=== PATIENT | female | born 1955 | race Caucasian/White ===

== ENCOUNTER 2017-04-15 23:48 | Observation (INO) | payer BC, OTHER ==
[2017-04-15 23:54] VITALS: BMI 34.9
--- NOTE | 2017-04-16 01:41 | PDOC ---
History of Present Illness - General Chief Complaint: Psychiatric Stated Complaint: ALTERED MENTAL STATUS Time Seen by Provider: 04/16/17 00:01 History Source: Patient Exam Limitations: No Limitations - History of Present Illness Initial Comments: 61-year-old female with a history of hypertension presents to the emergency department complaining of suicidal thoughts. Patient states she is under an extreme amount of stress over the past month. Patient states her brother and her best friend's was recently diagnosed with esophageal cancer. Patient presents to the emergency department tonight with her daughter after several episodes of hallucinations as per her daughter. Patient's daughter states the patient has a safe in her room at home which contains a ring from the patient's mother whom years ago. The patient does not have the keys to the safe. Her daughter is the only one who has the vazquez. The patient is convinced that the stone to the ring is missing and has been replaced. The patient also states she's been extremely upset after opening up to credit card lines approximately 1 month ago without her family knowing. Patient states her daughter and are the ones who deals with the finances of the home. Patient states she owes approximately $4000 on the combined credit cards. Patient told the family approximately 1 month ago because she states she can't hold it anymore. Patient states her thoughts are constantly consistent with if she was no longer around. Patient states she believes she is no longer on this earth, a lot of the problems will be resolved. Patient denied having a suicidal plan and she denies homicidal tendencies Timing/Duration: intermittent Associated Symptoms: anxiety, other (suicidal though) Past History - Past Medical History Allergies/Adverse Reactions: Allergies tetracycline Allergy (Verified 04/15/17 23:54) Rash Home Medications: Ambulatory Orders Cyclobenzaprine HCl [Flexeril -] 10 mg PO HS 04/16/17 Diazepam [Valium] 5 mg PO ONCE 04/16/17 Felodipine [Felodipine ER] 10 mg PO DAILY 04/16/17 Lisinopril [Zestril] 35 mg PO DAILY 04/16/17 Metoprolol Tartrate 100 mg PO DAILY 04/16/17 - Social History Smoking Status: Current some day smoker Number of Cigarettes Per Day: 5 *Review of Systems - Review of Systems Able to Perform ROS?: Yes Comments:: 04/16/17 03:57 CONSTITUTIONAL: Absent: fever, chills, diaphoresis, generalized weakness, malaise, loss of appetite HEENT: Absent: rhinorrhea, nasal congestion, throat pain, throat swelling, difficulty swallowing, mouth swelling, ear pain, eye pain, visual Changes CARDIOVASCULAR: Absent: chest pain, loss of consciousness, palpitations, irregular heart rate, peripheral edema RESPIRATORY: Absent: cough, shortness of breath, dyspnea with exertion, orthopnea, wheezing, stridor, hemoptysis GASTROINTESTINAL: Absent: abdominal pain, abdominal distension, nausea, vomiting, diarrhea, constipation, melena, hematochezia GENITOURINARY: Absent: dysuria, frequency, urgency, hesitancy, hematuria, flank pain, genital pain MUSCULOSKELETAL: Absent: myalgia, arthralgia, joint swelling SKIN: Absent: rash, itching, pallor HEMATOLOGIC/IMMUNOLOGIC: Absent: easy bleeding, easy bruising, lymphadenopathy, frequent infections ENDOCRINE: Absent: unexplained weight gain, unexplained weight loss, heat intolerance, cold intolerance NEUROLOGIC: Absent: headache, focal weakness or paresthesias, dizziness, unsteady gait, seizure, mental status changes, bladder or bowel incontinence PSYCHIATRIC: +hallucinations, anxiety, depression Absent: depression, homicidal ideation *Physical Exam - Vital Signs Last Vital Signs Temp Pulse Resp BP Pulse Ox 98 F 85 18 145/73 100 04/15/17 23:51 04/15/17 23:51 04/15/17 23:51 04/15/17 23:51 04/15/17 23:51 - Physical Exam Comments: 04/16/17 03:58 GENERAL: Well developed, well nourished. Awake and alert. No acute distress. HEENT: Normocephalic, atraumatic. PERRLA, EOMI. No conjunctival pallor. Sclera are non- icteric. Moist mucous membranes. Oropharynx is clear. NECK: Supple. Full ROM. No JVD. Carotid pulses 2+ and symmetric, without bruits. No thyromegaly. No lymphadenopathy. CARDIOVASCULAR: Regular rate and rhythm. No murmurs, rubs, or gallops. Distal pulses are 2+ and symmetric. PULMONARY: No evidence of respiratory distress. Lungs clear to auscultation bilaterally. No wheezing, rales or rhonchi. ABDOMINAL: Soft. Non-tender. Non-distended. No rebound or guarding. No organomegaly. Normoactive bowel sounds. MUSCULOSKELETAL Normal range of motion at all joints. No bony deformities or tenderness. No CVA tenderness. EXTREMITIES: No cyanosis. No clubbing. No edema. No calf tenderness. SKIN: Warm and dry. Normal capillary refill. No rashes. No jaundice. NEUROLOGICAL: Alert, awake, appropriate. Cranial nerves 2-12 intact. No deficits to light touch and temperature in face, upper extremities and lower extremities. No motor deficits in the in face, upper extremities and lower extremities. Normoreflexic in the upper and lower extremities. Normal speech. Toes are down- going bilaterally. Gait is normal without ataxia. PSYCHIATRIC: Cooperative. Good eye contact. Appropriate mood and affect. Plan - Laboratory CBC & Chemistry Diagram: 04/16/17 02:53 04/16/17 02:53 *DC/Admit/Observation/Transfer Diagnosis at time of Disposition: Suicidal thoughts, Anxiety - Discharge Dispostion Admit: Yes - Referrals Referrals: Shaye Nicole [Primary Care Provider] - - Patient Instructions - Post Discharge Activity Progress Note - Progress Note Progress Note: 0032hrs: Called Dr. Hernandez/psychiatry/[phone] awaiting response 0115hrs: Called Dr. Hernandez/cady/[phone] awaiting response 0233hrs: Called Dr. Hernandez/cady/[phone] awaiting response 0345hrs: Called Dr. Hernandez/cady/[phone] awaiting response 0502hrs: Called Dr. Hernandez/cady/[phone] awaiting response 0629hrs: Called Dr. Hernandez/cady/[phone] awaiting response 0705hrs: Signed out to RAISA Chang, awaiting Dr. Hernandez call back and consult
[2017-04-16 03:09] LABS: MCH 31.1 pg (25.7-33.7); MCHC 33.8 g/dl (32.0-36.0); MEAN CELL VOLUME 92.3 fl (80-96); MEAN PLT VOLUME 8.4 fl (7.5-11.1); PLATELET COUNT 266 K/MM3 (134-434); RDW 13.4 % (11.6-15.6); WHITE BLOOD COUNT 15.4 K/mm3 (4.0-10.0)
[2017-04-16 03:28] LABS: TOTAL CELLS COUNTED 100
[2017-04-16 03:49] LABS: ALBUMIN 4.4 g/dl (3.4-5.0); ANION GAP 9 (8-16); BILIRUBIN,TOTAL 0.5 mg/dL (0.2-1.0); CO2 26 mmol/L (21-32); CREATININE 1.2 mg/dL (0.55-1.02); GLUCOSE,RANDOM 105 mg/dL (74-106); SGOT/AST 19 U/L (15-37); SGPT/ALT 30 U/L (12-78); TOT PROT 7.8 g/dl (6.4-8.2)
[2017-04-16 03:50] LABS: ALK PHOS 66 U/L (45-117)
[2017-04-16 07:39] LABS: URINE APPEARANCE SLCLOUDY; URINE BILIRUBIN NEGATIVE (NEGATIVE); URINE BLOOD 1+ (NEGATIVE); URINE COLOR LTYELLOW; URINE GLUCOSE (UA) NEGATIVE (NEGATIVE); URINE KETONE NEGATIVE (NEGATIVE); URINE NITRITE NEGATIVE (NEGATIVE); URINE PROTEIN NEGATIVE (NEGATIVE); URINE UROBILINOGEN NEGATIVE mg/dL (0.2-1.0)
[2017-04-16 07:42] LABS: URINE BACTERIA MANY /hpf (NONE SEEN); URINE MUCUS RARE; URINE RBC 12 /hpf (0-3); URINE WBC 21 /hpf (3-5); YEAST FEW
[2017-04-16 08:19] LABS: URINE MARIJUANA THC POSITIVE ng/ml (CUTOFF=50)
[2017-04-16 08:28] VITALS: BP 118/73; PULSE 78; TEMP 98.4
--- NOTE | 2017-04-16 09:04 | PDOC ---
*Physical Exam - Vital Signs Last Vital Signs Temp Pulse Resp BP Pulse Ox 98.4 F 78 18 118/73 100 04/16/17 08:26 04/16/17 08:26 04/16/17 08:26 04/16/17 08:26 04/16/17 08:26 ED Treatment Course - LABORATORY CBC & Chemistry Diagram: 04/16/17 02:53 04/16/17 02:53 - ADDITIONAL ORDERS Additional order review: Laboratory Results 04/16/17 04/16/17 02:53 02:53 Sodium 138 Potassium 4.0 Chloride 103 Carbon Dioxide 26 Anion Gap 9 BUN 15 Creatinine 1.2 H Creat Clearance w eGFR 45.67 Random Glucose 105 Calcium 10.0 Total Bilirubin 0.5 AST 19 ALT 30 Alkaline Phosphatase 66 Total Protein 7.8 Albumin 4.4 TSH 2.50 04/16/17 02:53 RBC 4.47 MCV 92.3 MCHC 33.8 RDW 13.4 MPV 8.4 Neutrophils % No Result Required. Lymphocytes % No Result Required. Medical Decision Making - Medical Decision Making 04/16/17 08:03 Patient received in sign out from TRIP Kelly . Patient complaining of increased anxiety and stated suicidal ideation without a specific plan. Patient denies psychiatric history. Patient currently with one-to-one. Call placed to Dr. Morton and states will consult on patient shortly. 04/16/17 13:00 Laboratory Tests 04/16/17 07:25 Barbiturate Screen Negative Phencyclidine Screen Negative Ur Amphetamines Screen Negative MDMA (Ecstasy) Screen Negative Benzodiazepines Screen Positive Cocaine Screen Negative U Marijuana (THC) Screen Positive Dr. Morton here for consultation and states patient may be discharged home to be given a prescription for Remeron 15 mg for 2 weeks. Pt contracted for safety and wants to go home. *DC/Admit/Observation/Transfer Diagnosis at time of Disposition: Suicidal thoughts, Anxiety - Discharge Dispostion Disposition: HOME Condition at time of disposition: Good - Referrals - Patient Instructions - Post Discharge Activity Activity Comments: 04/16/17 13:01 Please take Premarin as recommended by Dr. Brock tomorrow for the next 2 weeks at night to help you sleep.
--- NOTE | 2017-04-16 13:05 | CON.PSY ---
Psychiatry Consult Chief Complaint: I am very anxiuos and overwhelmed with financial issues, i need some thing to hel;p me sleep. I am not suicidal , i am not going to kill myself. I have no psych Illness i am anxious. Symptoms: reports: Sleep Disturbance - Previous Psychiatric Treatment Outpatient: None Inpatient: None - Previous Substance Abuse Treatment Outpatient: None Inpatient: None - Allergies Allergies: Allergies Allergy/AdvReac Type Severity Reaction Status Date / Time tetracycline Allergy Rash Verified 04/15/17 23:54 - Current Living Status Usual Living Arrangement: With Spouse - Current Mental Status Evaluation Appearance: Well Groomed Attitude: Cooperative - Affect Affect: Full Range Appropriateness: Appropriate to Content - Mood Mood: Anxious - Speech/Language Expressive: Coherent - Psychomotor Activity Psychomotor Activity: Hyperactive - Thought Process Thought Process: Intact - Thought Content Hallucinations: Absent Delusions: Absent - Self Perception Self Perception: No Impairment - Cognition Attention: Alert Orientation: Time Memory, Immediate Recall: Intact Memory, Short Term: 3/3 Memory, Remote with Promptin/3 - Concentration Serial Sevens Intact: Yes Simple Calculations Intact: Yes - Abstraction Proverb Interpretation: Intact Judgement: Minimally Impaired - Insight Insight: Intact - Impulse Control Impulse Control: Good Control - Suicidal Ideation Suicidal Ideation: No - Homicidal Ideation Homicidal Ideation: No Assessment/Plan 1) Patient is not suicidal, does not have any concrete suicidal ideas or plans at this time. 2) Remeron 15mg po hs Two week supply. 3) Advised patient to seek OP psych follow up.
[2017-04-16 15:50] LABS: URINE LEUK ESTERASE 1+ (NEGATIVE)
== END 2017-04-16 13:18 | disposition home or self-care (01) ==
LOC: JER 23:48 → JERBED 04-16 07:10
PROVIDERS: ADMIT Internal Medicine; ATTEND Nurse Practitioner Acute Care
DX: R45.851 Suicidal ideations (principal); F41.8 Other specified anxiety disorders
CPT/HCPCS: 36415; 80053; 80307; 81003; 81015; 84443; 85025; 99284-25; G0378